=== PATIENT | female | born 1985 ===

== ENCOUNTER 2018-01-04 18:03 | Emergency (ER) | payer SELFPAY ==
[2018-01-04 18:04] VITALS: BMI 29.7
[2018-01-04 20:28] VITALS: BP 111/72; PULSE 101; RESP 16; TEMP 99.3; O2SAT 98
--- NOTE | 2018-01-04 21:50 | ED PDOC ---
HPI: CCC, URI, Sore Throat Time Seen by Provider: 01/04/18 21:24 Chief Complaint (Nursing): Flu-like Symptoms Chief Complaint (Provider): congestion History Per: Patient History/Exam Limitations: no limitations Onset/Duration Of Symptoms: Days (2) Current Symptoms Are (Timing): Still Present Associated Symptoms: Chills, Cough, Nasal Congestion Additional History Per: Patient Additional Complaint(s): 32 y/o female presents with congestion x 2 days. Patient reports headache, chills, nasal congestion, sneezing, and mild cough. Denies fever, nausea/ vomiting, bodyaches, chest pain, shortness of breath, palpitations, abdominal pain, changes in bowel movements, recent travel, sick contacts. Theraflu taken earlier today. Past Medical History Reviewed: Historical Data, Nursing Documentation, Vital Signs Vital Signs: Last Vital Signs Temp 99.3 F 01/04/18 20:26 Pulse 101 H 01/04/18 20:26 Resp 16 01/04/18 20:26 BP 111/72 01/04/18 20:26 Pulse Ox 98 01/04/18 21:51 - Medical History PMH: No Chronic Diseases - Surgical History Surgical History: No Surg Hx - Family History Family History: States: No Known Family Hx - Living Arrangements Living Arrangements: With Family - Home Medications Home Medications: Ambulatory Orders Medication Instructions Recorded Ibuprofen [Motrin] 600 mg PO Q6 PRN #15 tab 03/05/17 Fluticasone Nasal [Flonase] 1 actuation NS BID #1 bottle 01/04/18 Ibuprofen [Motrin Tab] 1 tab PO Q6 PRN #15 tab 01/04/18 Promethazine DM [Phenergan DM 5 ml PO Q6 PRN #1 bottle 01/04/18 Syrup] - Allergies Allergies/Adverse Reactions: Allergies Allergy/AdvReac Type Severity Reaction Status Date / Time No Known Allergies Allergy Verified 01/04/18 20:26 Review of Systems ROS Statement: Except As Marked, All Systems Reviewed And Found Negative Constitutional: Positive for: Weakness ENT: Positive for: Nose Congestion Respiratory: Positive for: Cough Physical Exam - Reviewed Nursing Documentation Reviewed: Yes Vital Signs Reviewed: Yes - Physical Exam Appears: Positive for: Well, Non-toxic, No Acute Distress Head Exam: Positive for: ATRAUMATIC, NORMAL INSPECTION, NORMOCEPHALIC Skin: Positive for: Normal Color Eye Exam: Positive for: Normal appearance ENT: Positive for: Nasal Congestion Cardiovascular/Chest: Positive for: Regular Rate, Rhythm Respiratory: Positive for: Normal Breath Sounds Gastrointestinal/Abdominal: Positive for: Normal Exam Back: Positive for: Normal Inspection Extremity: Positive for: Normal ROM Neurologic/Psych: Positive for: Alert, Oriented - ECG O2 Sat by Pulse Oximetry: 98 - Progress ED Course And Treament: ibuprofen PO Mother educated on findings, discharged with rx ibuprofen, flonase, promethazine DM. Advised fluids, rest. Follow up PMD 2-3 days. Return precautions given. Disposition - Clinical Impression Clinical Impression: Upper respiratory infection - Patient ED Disposition Is Patient to be Admitted: No Counseled Patient/Family Regarding: Diagnosis, Need For Followup, Rx Given - Disposition Disposition: Routine/Home Disposition Time: 22:39 Condition: IMPROVED Prescriptions: Fluticasone Nasal [Flonase] 1 actuation NS BID #1 bottle Ibuprofen [Motrin Tab] 1 tab PO Q6 PRN #15 tab PRN Reason: Pain, Moderate (4-7) Promethazine DM [Phenergan DM Syrup] 5 ml PO Q6 PRN #1 bottle PRN Reason: Cough Instructions: Viral Upper Respiratory Infection, Adult (DC) Forms: [employer] (English) Print Language: BELARUSIAN
== END 2018-01-04 22:59 | disposition home or self-care (01) ==
LOC: H.ER 18:03
DX: J06.9 Acute upper respiratory infection, unspecified (principal)

== ENCOUNTER 2018-05-30 08:13 | Emergency (ER) | payer OTHER ==
[2018-05-30 08:21] VITALS: BMI 26.6
[2018-05-30 08:22] VITALS: RESP 17
[2018-05-30] MEDS ORDERED: Sodium Chloride 0.9% 1,000 ML IV STA (09:40)
--- NOTE | 2018-05-30 10:21 | ED PDOC ---
HPI: General Adult Time Seen by Provider: 05/30/18 09:43 Chief Complaint (Nursing): Abdominal Pain History Per: Patient History/Exam Limitations: no limitations Onset/Duration Of Symptoms: Days (7) Current Symptoms Are (Timing): Still Present Additional Complaint(s): pt p/w + ~ 1 week onset of waxing and waning right lower abd pain; pt states pain initially started mild and it was right lower side; but pain worsened over the last 24hours and it became severe, rated at 8/10 pain, and radiated up to her right flank; pt states no fever/chills/sweats, no cp/sob/palpitations, no nausea/vomiting, + decr appetite, no urinary/bowel changes, no vaginal changes/ bleeding/discharge; pt denied fall/trauma/sick contact, no travel; pt denied rashes/bleeding. pt took OTC medications without any relief pt is here for further eval. pt's without other complaints. PCP: clinic LMP: 04/2018 Past Medical History Reviewed: Historical Data, Nursing Documentation, Vital Signs Vital Signs: Last Vital Signs Temp 98 F 05/30/18 08:21 Pulse 71 05/30/18 12:19 Resp 17 05/30/18 12:19 BP 105/63 05/30/18 12:19 Pulse Ox 98 05/30/18 15:08 - Medical History PMH: No Chronic Diseases - Family History Family History: States: No Known Family Hx - Living Arrangements Living Arrangements: With Family - Social History Current smoker - smoking cessation education provided: No Alcohol: None Drugs: Denies - Home Medications Home Medications: Ambulatory Orders Medication Instructions Recorded Ibuprofen [Motrin] 600 mg PO Q6 PRN #15 tab 03/05/17 Fluticasone Nasal [Flonase] 1 actuation NS BID #1 bottle 01/04/18 Ibuprofen [Motrin Tab] 1 tab PO Q6 PRN #15 tab 01/04/18 Promethazine DM [Phenergan DM 5 ml PO Q6 PRN #1 bottle 01/04/18 Syrup] Ibuprofen [Motrin] 600 mg PO QID PRN #30 tab 05/30/18 traMADol [Ultram] 50 mg PO TID PRN #15 tab 05/30/18 - Allergies Allergies/Adverse Reactions: Allergies Allergy/AdvReac Type Severity Reaction Status Date / Time No Known Allergies Allergy Verified 01/04/18 20:26 Review of Systems ROS Statement: Except As Marked, All Systems Reviewed And Found Negative Constitutional: Positive for: Chills. Negative for: Fever, Sweats, Weakness Eyes: Negative for: Pain ENT: Negative for: Ear Pain Cardiovascular: Negative for: Chest Pain Respiratory: Negative for: Cough, Shortness of Breath Gastrointestinal: Positive for: Abdominal Pain. Negative for: Nausea, Vomiting Genitourinary Female: Negative for: Dysuria, Frequency Musculoskeletal: Negative for: Neck Pain Skin: Negative for: Rash Neurological: Negative for: Weakness Physical Exam - Reviewed Nursing Documentation Reviewed: Yes Vital Signs Reviewed: Yes (WNL) - Physical Exam Appears: Positive for: Well (alert/awake, GCS = 15, oriented x 3, + uncomfortable, mild-moderate distress due to pain, resting in bed, follows command with ease, cooperative), Non-toxic, Uncomfortable, In Acute Distress Head Exam: Positive for: ATRAUMATIC, NORMAL INSPECTION, NORMOCEPHALIC Skin: Positive for: Normal Color (cap refill < 1sec, no ulcerations, no petechiae, no rashes/lesions), Warm, Dry. Negative for: Diaphoresis, Rash Eye Exam: Positive for: Normal appearance, EOMI, PERRL. Negative for: Nystagmus ENT: Positive for: Normal ENT Inspection, Pharynx Is (moist oral mucosa, intact dentitions, no drooling/stridor) Neck: Positive for: Normal, Painless ROM, Supple, Trachea Midline. Negative for : Decreased ROM Cardiovascular/Chest: Positive for: Regular Rate, Rhythm, Chest Non Tender, Other (+S1, +S2) Respiratory: Positive for: Normal Breath Sounds, Other (CTA b/l, no w/r/r, no accessory muscle use noted, no tachypenia) Gastrointestinal/Abdominal: Positive for: Normal Exam, Bowel Sounds, Soft, Other (+ right lower abd tenderness, + mcburney's point tenderness, well nourished female, no masses/rebound/guarding/rigidity) Back: Positive for: Normal Inspection. 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 (x3), Other (no facial asymmetries, no slurr speech) - Laboratory Results Result Diagrams: 05/30/18 09:50 05/30/18 09:50 - ECG O2 Sat by Pulse Oximetry: 98 (RA) Pulse Ox Interpretation: Normal - Radiology X-Ray: Viewed By Me, Read By Radiologist - Progress ED Course And Treament: 1230pm: pt felt improved after medications provided pt is awaiting CT results 1:00pm with abnl ct of the right lower quad (large cysts), will recommend U/S to r/o torsion 235pm vital signs: WNL pt is made aware of her medical results pt remained comfortable currently pt is encouraged outpt f/u pt will be discharged home Time: 1156 PROCEDURE: CT Abdomen and Pelvis with contrast HISTORY: R abd pain x 1 week, worse today COMPARISON: None. TECHNIQUE: Contrast dose: 95 cc Omnipaque 300 Radiation dose: Total exam DLP = 413.37 mGy-cm. This CT exam was performed using one or more of the following dose reduction techniques: Automated exposure control, adjustment of the mA and/or kV according to patient size, and/or use of iterative reconstruction technique. FINDINGS: LOWER THORAX: Unremarkable. LIVER: Unremarkable. No gross lesion or ductal dilatation. GALLBLADDER AND BILE DUCTS: Unremarkable. PANCREAS: Unremarkable. No gross lesion or ductal dilatation. SPLEEN: Unremarkable. ADRENALS: Unremarkable. No mass. KIDNEYS AND URETERS: Unremarkable. No hydronephrosis. No solid mass. VASCULATURE: Unremarkable. No aortic aneurysm. BOWEL: Few scattered colonic diverticulae predominantly descending sigmoid colon. No evidence of diverticulitis. No bowel obstruction. No other abnormal bowel loops. APPENDIX: Normal appendix. PERITONEUM: Unremarkable. No free fluid. No free air. LYMPH NODES: Unremarkable. No enlarged lymph nodes. BLADDER: Unremarkable. REPRODUCTIVE: Unremarkable uterus. Left-sided pelvic varices incidentally noted. Right ovarian cyst, 5.4 cm. Please note that in light of the history of right-sided pain, the possibility of ovarian torsion should be considered and recommend further evaluation with transvaginal pelvic ultrasound examination. BONES: No acute fracture. OTHER FINDINGS: None. IMPRESSION: 5.4 cm right ovarian cyst. Consider the possibility of ovarian torsion. Recommend further evaluation with transvaginal pelvic ultrasound examination. Incidental left-sided pelvic varices. These may be associated with symptoms of pelvic congestion syndrome. No other significant abnormality is identified. Time: 1426 HISTORY: r/o torsion, large cyst to right on ct COMPARISON: None available. TECHNIQUE: Transabdominal FINDINGS: UTERUS: Measures 9.9 x 4.0 x 5.1 cm. Normal in size and appearance. No fibroid or other mass lesion seen. ENDOMETRIUM: Measures 8 mm in diameter. Unremarkable. CERVIX: No cervical abnormality identified. RIGHT OVARY: Measures 6.9 x 5.4 x 5.6 cm. Simple cyst, 6.0 x 4.8 x 5.6 cm. No solid component identified. No internal echoes. Normal blood flow demonstrated with color Doppler interrogation. LEFT OVARY: Not identified. FREE FLUID: No significant free fluid noted. OTHER FINDINGS: None. IMPRESSION: Simple 6.0 cm right ovarian cyst. No evidence of ovarian torsion. Left ovary not visualized. Otherwise unremarkable. Re-evaluation Time: 12:30 Condition: Re-examined, Improved Medical Decision Making Medical Decision Making: Time: 939 Impression: r/o appy, r/o infection Differential Diagnosis: I have consider all the differential diagnosis regarding pt's chief medical complaints/clinical findings, including but are not limited to: r/o appy, r/o infection Plan: - ABD & Pelvis IV Contrast [CT] - CMP - Lipase - NPO Diet [DIET] - ED Urine - CBC w/ Differential - Morphine 4mg - Normal Saline 999mls/hr - Toradol 30mg IVP - IV Insertion - Urinalysis - Pelvic Non OB B Scan Limited [US] Disposition - Clinical Impression Clinical Impression: Ovarian cyst, Abdominal cramps - Patient ED Disposition Is Patient to be Admitted: No Counseled Patient/Family Regarding: Studies Performed, Diagnosis, Need For Followup, Rx Given - Disposition Referrals: PCP,NO [Non-Staff] - [facility] [place] [Outside] [facility] [Outside] [facility] [Outside] [facility] [Outside] Disposition: Routine/Home Disposition Time: 15:00 Condition: STABLE Additional Instructions: Make sure to see your doctor in 1-2 days DRINK PLENTY OF FLUIDS take your medications as prescribed RETURN TO ED IF worse pain, cant breath, persistent vomiting, high fever >101- 102 for hours, altered behavior, slurr speech, facial changes, focal weakness ( arm/leg or both), unable to urinate, heavy/persistent bleeding, passing out, chest pain, or other medical emergencies Prescriptions: Ibuprofen [Motrin] 600 mg PO QID PRN #30 tab PRN Reason: Pain, Mild (1-3) traMADol [Ultram] 50 mg PO TID PRN #15 tab PRN Reason: Pain, Moderate (4-7) Instructions: Ovarian Cysts Forms: [employer] (Haitian) Print Language: LAO
[2018-05-30 10:29] LABS: SQUAMOUS EPITHIAL < 1 /hpf (0-5); URINE BACTERIA RARE (<OCC); URINE BILIRUBIN NEGATIVE (NEGATIVE); URINE BLOOD NEGATIVE (NEGATIVE); URINE CLARITY CLEAR (Clear); URINE COLOR STRAW (YELLOW); URINE GLUCOSE (UA) NEG (Normal); URINE LEUKOCYTE ESTERASE NEG Leu/uL (Negative); URINE PROTEIN NEGATIVE (NEGATIVE); URINE UROBILINOGEN 0.2-1.0 mg/dL (0.2-1.0)
[2018-05-30 10:30] LABS: BASO % 0.4 % (0.0-2.0); EOS # 0.1 K/uL (0.0-0.7); EOS % 1.7 % (0.0-4.0); HEMOGLOBIN 12.5 g/dL (12.0-16.0); LYMPH # 1.9 K/uL (1.0-4.3); LYMPH % 39.1 % (20.0-40.0); MEAN CELL VOLUME 89.9 fl (81.0-99.0); MEAN CORPUSCULAR HEMOGLOBIN 30.2 pg (27.0-31.0); MEAN CORPUSCULAR HGB CONC 33.6 g/dL (33.0-37.0); MEAN PLATELET VOLUME 9.2 fl (7.2-11.7); MONO # 0.3 K/uL (0.0-0.8); MONO % 5.7 % (0.0-10.0); NEUT # 2.6 K/uL (1.8-7.0); NEUT % 53.1 % (50.0-75.0); NRBC % 0.2 % (0.0-0.0); RBC 4.14 Mil/uL (3.80-5.20); RED CELL DISTRIBUTION WIDTH 13.8 % (11.5-14.5); WHITE BLOOD COUNT 4.9 K/uL (4.8-10.8)
[2018-05-30 10:44] LABS: ALB/GLOB RATIO 1.5 (1.0-2.1); ALBUMIN 4.2 g/dL (3.5-5.0); ALT/SGPT 31 U/L (9-52); AST/SGOT 40 U/L (14-36); BLOOD UREA NITROGEN 7 mg/dl (7-17); CALCIUM 8.7 mg/dL (8.4-10.2); GFR AFRICAN-AMERICAN > 60; GFR NON-AFRICAN AMERICAN > 60; LIPASE 102 U/L (23-300)
[2018-05-30] MEDS ORDERED: Iohexol 300 100 ML IJ ONE (11:39)
--- NOTE | 2018-05-30 11:58 | CT ---
Date of service: 05/30/2018 PROCEDURE: CT Abdomen and Pelvis with contrast HISTORY: R abd pain x 1 week, worse today COMPARISON: None. TECHNIQUE: Contrast dose: 95 cc Omnipaque 300 Radiation dose: Total exam DLP = 413.37 mGy-cm. This CT exam was performed using one or more of the following dose reduction techniques: Automated exposure control, adjustment of the mA and/or kV according to patient size, and/or use of iterative reconstruction technique. FINDINGS: LOWER THORAX: Unremarkable. LIVER: Unremarkable. No gross lesion or ductal dilatation. GALLBLADDER AND BILE DUCTS: Unremarkable. PANCREAS: Unremarkable. No gross lesion or ductal dilatation. SPLEEN: Unremarkable. ADRENALS: Unremarkable. No mass. KIDNEYS AND URETERS: Unremarkable. No hydronephrosis. No solid mass. VASCULATURE: Unremarkable. No aortic aneurysm. BOWEL: Few scattered colonic diverticulae predominantly descending sigmoid colon. No evidence of diverticulitis. No bowel obstruction. No other abnormal bowel loops. APPENDIX: Normal appendix. PERITONEUM: Unremarkable. No free fluid. No free air. LYMPH NODES: Unremarkable. No enlarged lymph nodes. BLADDER: Unremarkable. REPRODUCTIVE: Unremarkable uterus. Left-sided pelvic varices incidentally noted. Right ovarian cyst, 5.4 cm. Please note that in light of the history of right-sided pain, the possibility of ovarian torsion should be considered and recommend further evaluation with transvaginal pelvic ultrasound examination. BONES: No acute fracture. OTHER FINDINGS: None. IMPRESSION: 5.4 cm right ovarian cyst. Consider the possibility of ovarian torsion. Recommend further evaluation with transvaginal pelvic ultrasound examination. Incidental left-sided pelvic varices. These may be associated with symptoms of pelvic congestion syndrome. No other significant abnormality is identified.
--- NOTE | 2018-05-30 14:27 | US ---
Date of service: 05/30/2018 HISTORY: r/o torsion, large cyst to right on ct COMPARISON: None available. TECHNIQUE: Transabdominal FINDINGS: UTERUS: Measures 9.9 x 4.0 x 5.1 cm. Normal in size and appearance. No fibroid or other mass lesion seen. ENDOMETRIUM: Measures 8 mm in diameter. Unremarkable. CERVIX: No cervical abnormality identified. RIGHT OVARY: Measures 6.9 x 5.4 x 5.6 cm. Simple cyst, 6.0 x 4.8 x 5.6 cm. No solid component identified. No internal echoes. Normal blood flow demonstrated with color Doppler interrogation. LEFT OVARY: Not identified. FREE FLUID: No significant free fluid noted. OTHER FINDINGS: None. IMPRESSION: Simple 6.0 cm right ovarian cyst. No evidence of ovarian torsion. Left ovary not visualized. Otherwise unremarkable.
[2018-05-30 15:30] VITALS: BP 101/61; PULSE 65; TEMP 98.6
[2018-05-30 15:31] VITALS: O2SAT 98
== END 2018-05-30 15:29 | disposition home or self-care (01) ==
LOC: H.ER 08:13
DX: N83.201 Unspecified ovarian cyst, right side (principal)
CPT/HCPCS: 74177; 76857; 80053; 81003; 81025; 83690; 85025; 96361; 96374; 99285; J2270; J7030; Q9967